=== PATIENT | male | born 1995 | race Hispanic/Latino ===

== ENCOUNTER 2017-02-02 20:25 | Emergency (ER) | payer OTHER ==
[2017-02-02 20:32] VITALS: BP 116/70; PULSE 85; RESP 16; TEMP 97; O2SAT 99
--- NOTE | 2017-02-02 20:46 | ED PDOC ---
Upper Extremity Pain/Injury Time Seen by Provider: 02/02/17 20:35 Chief Complaint (Nursing): Upper Extremity Problem/Injury Chief Complaint (Provider): arm pain History Per: Patient Additional Complaint(s): 21-year-old right-hand dominant male presents to emergency department with pain to right elbow status post fall. Patient unable to bend elbow without severe pain. Patient also sustained abrasions to left elbow, right hand and both knees but denies pain to those areas. Tetanus is up-to-date. No head injury or loss of consciousness. Past Medical History Reviewed: Historical Data, Nursing Documentation, Vital Signs Vital Signs: Last Vital Signs Temp 97.0 F L 02/02/17 20:30 Pulse 85 02/02/17 20:30 Resp 16 02/02/17 20:30 BP 116/70 02/02/17 20:30 Pulse Ox 99 02/02/17 20:30 - Medical History PMH: No Chronic Diseases - Surgical History Surgical History: No Surg Hx - Family History Family History: States: No Known Family Hx - Living Arrangements Living Arrangements: With Friends/Others - Social History Current smoker - smoking cessation education provided: No Alcohol: None Drugs: Denies - Immunization History Hx Tetanus Toxoid Vaccination: Yes - Allergies Allergies/Adverse Reactions: Allergies Allergy/AdvReac Type Severity Reaction Status Date / Time No Known Allergies Allergy Verified 02/02/17 20:30 Review of Systems ROS Statement: Except As Marked, All Systems Reviewed And Found Negative Musculoskeletal: Positive for: Other (right arm injury, abrasions to left elbow , right hand, both knees s/p fall) Neurological: Positive for: Other (no head injury or LOC) Physical Exam - Reviewed Nursing Documentation Reviewed: Yes Vital Signs Reviewed: Yes - Physical Exam Appears: Positive for: Well, Non-toxic, No Acute Distress Head Exam: Positive for: ATRAUMATIC, NORMAL INSPECTION Skin: Negative for: Rash Eye Exam: Positive for: Normal appearance Neck: Positive for: Painless ROM Back: Negative for: Vertebral Tenderness Extremity: Positive for: Other (1 cm very superficial laceration with surrounding abrasions noted to palmar aspect of left elbow, full rom of left elbow, superficial abrasions to right hand and both knees with full range of motion of same; there is moderate swelling and tenderness to right olecranon with decreased range of motion, tenderness noted to right shoulder and humerus region, strong right handgrip, normal capillary refill, normal distal sensation) Neurologic/Psych: Positive for: Alert, Oriented - ECG O2 Sat by Pulse Oximetry: 99 Pulse Ox Interpretation: Normal - Other Rad Right forearm, elbow, humerus and shoulder X-Ray: Interpreted by Me, Viewed By Me X-Ray Interpretation: no fx, no dis Medical Decision Making Medical Decision Makin-year-old male with right arm pain status post fall. Plan: Pain medicine declined X-rays ordered for right forearm, elbow, humerus and shoulder Abrasions cleansed with normal saline and Betadine, bacitracin and bandages applied. Patient aware of x-ray results. All questions answered. Wound care instructions given. Advised ibuprofen for pain every 6 hours. Patient was referred to orthopedist on-call for follow-up. Procedures - Splinting Location: right arm Pre-Made Type: ghassan wrap to right elbow, sling to right arm Pre-Proc Neuro Vasc Exam: normal Post-Proc Neuro Vasc Exam: normal Disposition - Clinical Impression Clinical Impression: Elbow sprain, Abrasions of multiple sites - Patient ED Disposition Is Patient to be Admitted: No Counseled Patient/Family Regarding: Studies Performed, Diagnosis, Need For Followup - Disposition Referrals: Anoop Dominguez MD [Staff Provider] - Disposition: Routine/Home Disposition Time: 21:58 Condition: STABLE Additional Instructions: Ice and only affected area. Ibuprofen for pain every 6 hours. Follow up with primary doctor or orthopedist for any persistent symptoms. Instructions: Elbow Sprain (ED), Abrasion (ED) Forms: [employer] (Lithuanian)
--- NOTE | 2017-02-03 12:03 | RAD ---
PROCEDURE: Radiographs of the Right Shoulder HISTORY: trauma COMPARISON: No prior. FINDINGS: BONES: Normal. No fracture. JOINTS: Normal. Glenohumeral and acromioclavicular joints preserved. No osteoarthritis. SOFT TISSUES: Normal. OTHER FINDINGS: None. IMPRESSION: Normal radiographs of the right shoulder.
--- NOTE | 2017-02-03 12:05 | RAD ---
PROCEDURE: Radiographs of the right humerus. HISTORY: trauma COMPARISON: None. FINDINGS: BONES: Normal. No fracture or focal lesion. SOFT TISSUES: Normal. OTHER FINDINGS: None. IMPRESSION: Normal radiographs of right humerus.
--- NOTE | 2017-02-03 12:07 | RAD ---
PROCEDURE: Radiographs of the right elbow. HISTORY: trauma COMPARISON: No prior. FINDINGS: BONES: No acute fracture or suspicious lytic or blastic change identified. JOINTS: Normal. No osteoarthritis. SOFT TISSUES: Normal. JOINT EFFUSION: None. OTHER FINDINGS: None. IMPRESSION: Unremarkable radiographs of the right elbow.
--- NOTE | 2017-02-03 12:08 | RAD ---
PROCEDURE: Radiographs of the Right Forearm HISTORY: trauma COMPARISON: None available. TECHNIQUE: Frontal and lateral views obtained. FINDINGS: BONES: No acute fracture or suspicious lytic or blastic change identified. JOINT SPACES: Unremarkable. OTHER FINDINGS: None. IMPRESSION: Unremarkable radiographs of the right forearm.
== END 2017-02-02 22:33 | disposition home or self-care (01) ==
LOC: H.ER 20:25
DX: S53.401A Unspecified sprain of right elbow, initial encounter (principal); T14.8 Other injury of unspecified body region; W19.XXXA Unspecified fall, initial encounter; Y92.89 Other specified places as the place of occurrence of the external cause